=== PATIENT | female | born 1950 | race Caucasian/White ===

== ENCOUNTER 2018-02-22 16:47 | Outpatient (REF) | payer MEDICARE, MEDICAID, SELFPAY ==
[2018-02-22 21:03] LABS: HCT 36.5 % (36.0-46.0); HGB 11.4 g/dL (12.0-15.5); Mean Corp. HGB Concentration 31.2 g/dL (32.0-36.0); Mean Corpuscular Hemoglobin 30.5 pg (27.0-33.0); Mean Corpuscular Volume 97.6 fL (80-95); Mean Platelet Volume 12.6 fL (8.0-11.0); Platelet Count 164 x1000/uL (130-400); RBC 3.74 m/cumm (4.00-5.20); RBC Distribution Width 13.7 % (11.7-14.6); White Blood Cell Count 8.01 k/cumm (4.4-10.8)
[2018-02-22 21:53] LABS: Anion Gap 9.9 mmol/L (3-11); BUN 56 mg/dL (7-18); CO2 29.1 mmol/L (21.0-32.0); CREATININE 1.78 mg/dL (0.55-1.02); Calcium 8.9 mg/dL (8.5-10.1); Chloride 105 mmol/L (98-107); Estimated GFR 28.43 (mL/min/1.73m2); Glucose 95 mg/dL (70-100); Potassium 4.9 mmol/L (3.5-5.1); Sodium 144 mmol/L (136-145)
[2018-02-22 22:19] LABS: Iron 40 ug/dL (50-175); Total Iron Binding Capacity 363 ug/dL (250-450); Transferrin Sat 11 % (15-50)
[2018-02-22 22:37] LABS: Ferritin 51 ng/mL (8-388)
== END 2018-02-22 17:07 ==
LOC: NCHCN 16:47
PROVIDERS: PCP Family Medicine; Visit Provider Family Medicine
DX: E11.40 Type 2 diabetes mellitus with diabetic neuropathy, unspecified (principal); D50.9 Iron deficiency anemia, unspecified; N18.3 Chronic kidney disease, stage 3 (moderate)
CPT/HCPCS: 80048; 85027; 82728; 83540; 83550

== ENCOUNTER 2018-06-21 11:09 | Outpatient (REF) | payer MEDICARE, MEDICAID, SELFPAY ==
[2018-06-21 21:19] LABS: HCT 35.7 % (36.0-46.0); HGB 11.1 g/dL (12.0-15.5); Mean Corp. HGB Concentration 31.1 g/dL (32.0-36.0); Mean Corpuscular Hemoglobin 30.3 pg (27.0-33.0); Mean Corpuscular Volume 97.5 fL (80-95); Mean Platelet Volume 12.2 fL (8.0-11.0); Platelet Count 168 x1000/uL (130-400); RBC 3.66 m/cumm (4.00-5.20); RBC Distribution Width 13.3 % (11.7-14.6); White Blood Cell Count 8.02 k/cumm (4.4-10.8)
[2018-06-21 21:43] LABS: Hemoglobin A1C 5.5 % (4.5-6.2)
[2018-06-21 21:47] LABS: Iron 69 ug/dL (50-175)
[2018-06-21 21:55] LABS: AST 14 U/L (15-37); Albumin 3.6 g/dL (3.4-5.0); Alkaline Phosphatase 84 U/L (46-116); Anion Gap 8.9 mmol/L (3-11); BUN 51 mg/dL (7-18); Bilirubin, Total 0.4 mg/dL (0.2-1.0); CO2 31.1 mmol/L (21.0-32.0); CREATININE 1.81 mg/dL (0.55-1.02); Calcium 9.1 mg/dL (8.5-10.1); Chloride 102 mmol/L (98-107); Cholesterol 177 mg/dL (50-200); Ferritin 52 ng/mL (8-388); Glucose 89 mg/dL (70-100); HDL Cholesterol 37 mg/dL (40-60); LDL CHOLESTEROL 112 mg/dL (<100); Potassium 4.1 mmol/L (3.5-5.1); Sodium 142 mmol/L (136-145); Total Protein 6.9 g/dL (6.4-8.2); Triglyceride 179 mg/dL (30-150)
[2018-06-21 22:07] LABS: ALT 16 U/L (12-78)
== END 2018-06-21 11:29 ==
LOC: NCHCN 11:09
PROVIDERS: PCP Family Medicine; Visit Provider Family Medicine
DX: E11.9 Type 2 diabetes mellitus without complications (principal)
CPT/HCPCS: 80053; 80061; 83721; 85027; 82728; 83036; 83540

== ENCOUNTER 2018-10-31 15:37 | Outpatient (REF) | payer MEDICARE, MEDICAID, SELFPAY ==
[2018-11-01 10:28] LABS: HCT 35.6 % (36.0-46.0); HGB 11.5 g/dL (12.0-15.5); Mean Corp. HGB Concentration 32.3 g/dL (32.0-36.0); Mean Corpuscular Hemoglobin 30.7 pg (27.0-33.0); Mean Corpuscular Volume 94.9 fL (80-95); Mean Platelet Volume 12.2 fL (8.0-11.0); Platelet Count 183 x1000/uL (130-400); RBC 3.75 m/cumm (4.00-5.20); RBC Distribution Width 13.5 % (11.7-14.6); White Blood Cell Count 8.36 k/cumm (4.4-10.8)
[2018-11-01 12:30] LABS: Anion Gap 12.2 mmol/L (3-11); BUN 72 mg/dL (7-18); CO2 27.8 mmol/L (21.0-32.0); CREATININE 1.79 mg/dL (0.55-1.02); Calcium 9.3 mg/dL (8.5-10.1); Chloride 103 mmol/L (98-107); Estimated GFR 28.16 (mL/min/1.73m2); Ferritin 48 ng/mL (8-388); Glucose 98 mg/dL (70-100); Potassium 4.8 mmol/L (3.5-5.1); Sodium 143 mmol/L (136-145); Vitamin B12 489 pg/mL (193-986)
[2018-11-01 12:38] LABS: Folate > 20.0 ng/mL (8.6-20.0)
== END 2018-10-31 15:57 ==
LOC: NCHCN 15:37
PROVIDERS: PCP Family Medicine; Visit Provider Family Medicine
DX: D50.9 Iron deficiency anemia, unspecified (principal); E11.9 Type 2 diabetes mellitus without complications; N18.3 Chronic kidney disease, stage 3 (moderate)
CPT/HCPCS: 80048; 85027; 82607; 82728; 82746

== ENCOUNTER 2019-08-27 08:43 | Outpatient (REF) | payer MEDICARE, MEDICAID, SELFPAY ==
[2019-08-27 21:40] LABS: HCT 36.3 % (36.0-46.0); HGB 11.8 g/dL (12.0-15.5); Mean Corp. HGB Concentration 32.5 g/dL (32.0-36.0); Mean Corpuscular Hemoglobin 30.6 pg (27.0-33.0); Mean Corpuscular Volume 94.3 fL (80-95); Mean Platelet Volume 11.8 fL (8.0-11.0); Platelet Count 190 x1000/uL (130-400); RBC 3.85 m/cumm (4.00-5.20); RBC Distribution Width 12.7 % (11.7-14.6); White Blood Cell Count 8.82 k/cumm (4.4-10.8)
[2019-08-27 21:49] LABS: Hemoglobin A1C 5.8 % (3.8-5.6)
[2019-08-27 22:03] LABS: ALT 18 U/L (14-59); AST 13 U/L (15-37); Albumin 3.9 g/dL (3.4-5.0); Alkaline Phosphatase 80 U/L (46-116); Anion Gap 6.8 mmol/L (3-11); Bilirubin, Total 0.5 mg/dL (0.2-1.0); CO2 32.2 mmol/L (21.0-32.0); CREATININE 1.89 mg/dL (0.55-1.02); Calcium 9.3 mg/dL (8.5-10.1); Chloride 99 mmol/L (98-107); Estimated GFR 26.37 (mL/min/1.73m2); Ferritin 54 ng/mL (8-252); Glucose 108 mg/dL (74-106); Potassium 4.1 mmol/L (3.5-5.1); Sodium 138 mmol/L (136-145); Total Protein 7.2 g/dL (6.4-8.2)
[2019-08-27 22:10] LABS: BUN 62 mg/dL (7-18)
== END 2019-08-27 09:03 ==
LOC: NCHCN 08:43
PROVIDERS: PCP Family Medicine; Visit Provider Family Medicine
DX: E11.9 Type 2 diabetes mellitus without complications (principal); D50.9 Iron deficiency anemia, unspecified
CPT/HCPCS: 80053; 85027; 82728; 83036

== ENCOUNTER 2019-11-27 08:50 | Outpatient (REF) | payer MEDICARE, MEDICAID, SELFPAY ==
[2019-11-27 21:18] LABS: Anion Gap 10.7 mmol/L (3-11); BUN 76 mg/dL (7-18); CO2 29.3 mmol/L (21.0-32.0); CREATININE 1.88 mg/dL (0.55-1.02); Calcium 9.8 mg/dL (8.5-10.1); Chloride 102 mmol/L (98-107); Estimated GFR 26.53 (mL/min/1.73m2); Glucose 109 mg/dL (74-106); Potassium 4.1 mmol/L (3.5-5.1); Sodium 142 mmol/L (136-145)
[2019-11-27 21:28] LABS: Vitamin D 25 Total 66.2 ng/ml (30-100)
[2019-11-27 21:29] LABS: Hemoglobin A1C 5.3 % (3.8-5.6)
[2019-11-27 21:48] LABS: PHOSPHORUS 4.4 mg/dL (2.6-4.7)
== END 2019-11-27 09:10 ==
LOC: NCHCN 08:50
PROVIDERS: PCP Family Medicine; Visit Provider Family Medicine
DX: E11.9 Type 2 diabetes mellitus without complications (principal); N18.4 Chronic kidney disease, stage 4 (severe); E55.9 Vitamin D deficiency, unspecified
CPT/HCPCS: 80048; 82306; 83036; 84100

== ENCOUNTER 2019-12-31 09:28 | Outpatient (REF) | payer MEDICARE, MEDICAID, SELFPAY ==
[2019-12-31 19:33] LABS: Anion Gap 9.4 mmol/L (3-11); BUN 64 mg/dL (7-18); CO2 31.6 mmol/L (21.0-32.0); Calcium 9.2 mg/dL (8.5-10.1); Chloride 102 mmol/L (98-107); Glucose 112 mg/dL (74-106); Sodium 143 mmol/L (136-145)
== END 2019-12-31 09:48 ==
LOC: NCHCN 09:28
PROVIDERS: PCP Family Medicine; Visit Provider Family Medicine
DX: E11.9 Type 2 diabetes mellitus without complications (principal); I10 Essential (primary) hypertension
CPT/HCPCS: 80048

== ENCOUNTER 2020-03-11 11:57 | Outpatient (REF) | payer MEDICARE, MEDICAID, SELFPAY ==
[2020-03-11 21:01] LABS: HCT 37.3 % (36.0-46.0); HGB 11.9 g/dL (11.2-15.7); MCH 30.2 pg (27.0-33.0); MCHC 31.9 % (32.0-36.0); MCV 94.7 fL (80-95); MPV 11.7 fL (8.0-11.0); Platelet Count 198 10^3/uL (130-400); RBC 3.94 10^6/uL (3.93-5.22); RDW-SD 44.6 fL; WBC 10.25 10^3/uL (4.4-10.8)
[2020-03-11 21:49] LABS: Anion Gap 9.3 mmol/L (3-11); BUN 65 mg/dL (7-18); CO2 31.7 mmol/L (21.0-32.0); CREATININE 1.89 mg/dL (0.55-1.02); Calcium 9.4 mg/dL (8.5-10.1); Chloride 100 mmol/L (98-107); Estimated GFR 26.37 (mL/min/1.73m2); Glucose 113 mg/dL (74-106); Potassium 3.6 mmol/L (3.5-5.1); Sodium 141 mmol/L (136-145)
== END 2020-03-11 12:17 ==
LOC: NCHCN 11:57
PROVIDERS: PCP Family Medicine; Visit Provider Family Medicine
DX: N18.4 Chronic kidney disease, stage 4 (severe) (principal); D50.9 Iron deficiency anemia, unspecified
CPT/HCPCS: 80048; 85027

== ENCOUNTER 2020-05-24 19:05 | Outpatient (REF) | payer MEDICARE, MEDICAID, SELFPAY ==
[2020-05-24 12:39] LABS: Abs Immature Grans 0.02 10^3/uL (0.0-0.06); Absolute Basophil Count 0.07 10^3/uL (0.0-0.2); Absolute Eosinophil Count 0.35 10^3/uL (0.0-0.7); Absolute Lymphocyte Count 1.03 10^3/uL (1.2-3.4); Absolute Monocyte Count 0.55 10^3/uL (0.1-0.8); Absolute Neutrophil Count 5.06 10^3/uL (1.2-6.7); Eosinophils % 4.9; HCT 24.5 % (36.0-46.0); Immature Grans % 0.3; Lymphocytes % 14.5; MCH 30.5 pg (27.0-33.0); MCHC 32.7 % (32.0-36.0); MCV 93.5 fL (80-95); MPV 11.6 fL (8.0-11.0); Monocytes % 7.8; Neutrophils % 71.5; Nucleated RBC 0 %; Platelet Count 152 10^3/uL (130-400); RBC 2.62 10^6/uL (3.93-5.22); RDW 14.5 % (11.7-14.6); RDW-SD 49.8 fL; WBC 7.08 10^3/uL (4.4-10.8)
[2020-05-24 12:57] LABS: Anion Gap 12.3 mmol/L (3-11); BUN 57 mg/dL (7-18); C-Reactive Protein 0.77 mg/dL (0.0-0.3); CO2 22.7 mmol/L (21.0-32.0); CREATININE 2.37 mg/dL (0.55-1.02); Chloride 96 mmol/L (98-107); Estimated GFR 20.25 (mL/min/1.73m2); Glucose 110 mg/dL (74-106); Sodium 131 mmol/L (136-145)
[2020-05-24 13:03] LABS: Diff Comment RBC Morph Reviewed
[2020-05-24 13:04] LABS: Basophilic Stippling Present; Polychromasia Present
[2020-05-24 13:28] LABS: Vancomycin, Trough 22.7 ug/mL (10.0-20.0)
== END 2020-05-24 19:25 ==
LOC: LBN 19:05
PROVIDERS: PCP Family Medicine; Visit Provider Pediatrics
DX: M86.171 Other acute osteomyelitis, right ankle and foot (principal)
CPT/HCPCS: 80048; 80202; 85025; 86140

== ENCOUNTER 2020-05-28 13:10 | Outpatient (REF) | payer MEDICARE, MEDICAID, SELFPAY ==
[2020-05-28 15:19] LABS: CREATININE 2.27 mg/dL (0.55-1.02); Estimated GFR 21.28 (mL/min/1.73m2); Vancomycin, Trough 19.9 ug/mL (10.0-20.0)
== END 2020-05-28 13:30 ==
LOC: LBN 13:10
PROVIDERS: PCP Family Medicine; Visit Provider Pediatrics
DX: T25.321D Burn of third degree of right foot, subsequent encounter (principal); M86.171 Other acute osteomyelitis, right ankle and foot; Z79.2 Long term (current) use of antibiotics
CPT/HCPCS: 80202; 82565

== ENCOUNTER 2020-05-31 13:22 | Outpatient (REF) | payer MEDICARE, MEDICAID, SELFPAY ==
[2020-05-31 14:05] LABS: Abs Immature Grans 0.03 10^3/uL (0.0-0.06); Absolute Basophil Count 0.12 10^3/uL (0.0-0.2); Absolute Monocyte Count 0.74 10^3/uL (0.1-0.8); Absolute Neutrophil Count 5.51 10^3/uL (1.2-6.7); Basophils % 1.5; Eosinophils % 5.1; HCT 25.9 % (36.0-46.0); HGB 8.1 g/dL (11.2-15.7); Immature Grans % 0.4; Lymphocytes % 13.9; MCH 30.5 pg (27.0-33.0); MCHC 31.3 % (32.0-36.0); MCV 97.4 fL (80-95); MPV 10.9 fL (8.0-11.0); Monocytes % 9.4; Neutrophils % 69.7; Nucleated RBC 0 %; Platelet Count 226 10^3/uL (130-400); RBC 2.66 10^6/uL (3.93-5.22); RDW 14.4 % (11.7-14.6); RDW-SD 50.6 fL
[2020-05-31 14:20] LABS: BUN 43 mg/dL (7-18); CREATININE 1.85 mg/dL (0.55-1.02); Calcium 8.7 mg/dL (8.5-10.1); Chloride 106 mmol/L (98-107); Estimated GFR 26.95 (mL/min/1.73m2); Glucose 106 mg/dL (74-106); Potassium 4.2 mmol/L (3.5-5.1); Sodium 142 mmol/L (136-145)
== END 2020-05-31 13:42 ==
LOC: LBN 13:22
PROVIDERS: PCP Family Medicine; Visit Provider Pediatrics
DX: M86.171 Other acute osteomyelitis, right ankle and foot (principal); E11.42 Type 2 diabetes mellitus with diabetic polyneuropathy; E11.69 Type 2 diabetes mellitus with other specified complication
CPT/HCPCS: 80048; 80202; 85025; 86140

== ENCOUNTER 2020-06-07 14:24 | Outpatient (REF) | payer MEDICARE, MEDICAID, SELFPAY ==
[2020-06-07 13:44] LABS: Abs Immature Grans 0.02 10^3/uL (0.0-0.06); Absolute Eosinophil Count 0.44 10^3/uL (0.0-0.7); Absolute Monocyte Count 0.61 10^3/uL (0.1-0.8); Absolute Neutrophil Count 5.03 10^3/uL (1.2-6.7); Basophils % 1.4; Eosinophils % 6.2; HGB 7.7 g/dL (11.2-15.7); Immature Grans % 0.3; Lymphocytes % 12.7; MCHC 30.8 % (32.0-36.0); MCV 97.3 fL (80-95); MPV 10.7 fL (8.0-11.0); Monocytes % 8.6; Neutrophils % 70.8; Nucleated RBC 0 %; Platelet Count 211 10^3/uL (130-400); RBC 2.57 10^6/uL (3.93-5.22); RDW 14.5 % (11.7-14.6); RDW-SD 50.6 fL
[2020-06-07 13:58] LABS: Anion Gap 6.4 mmol/L (3-11); BUN 38 mg/dL (7-18); C-Reactive Protein 2.24 mg/dL (0.0-0.3); CO2 28.6 mmol/L (21.0-32.0); CREATININE 1.81 mg/dL (0.55-1.02); Calcium 8.4 mg/dL (8.5-10.1); Chloride 104 mmol/L (98-107); Estimated GFR 27.64 (mL/min/1.73m2); Glucose 111 mg/dL (74-106); Potassium 4.3 mmol/L (3.5-5.1); Sodium 139 mmol/L (136-145)
[2020-06-07 14:10] LABS: Diff Comment Diff Reviewed; Hypochromasia 1+; Polychromasia Present
== END 2020-06-07 14:44 ==
LOC: LBN 14:24
PROVIDERS: PCP Family Medicine; Visit Provider Pediatrics
DX: M86.171 Other acute osteomyelitis, right ankle and foot (principal); E11.42 Type 2 diabetes mellitus with diabetic polyneuropathy; L97.512 Non-pressure chronic ulcer of other part of right foot with fat layer exposed; Z79.2 Long term (current) use of antibiotics
CPT/HCPCS: 80048; 80202; 85025; 86140

== ENCOUNTER 2020-06-11 15:31 | Outpatient (REF) | payer MEDICARE, MEDICAID, SELFPAY ==
[2020-06-11 13:43] LABS: Vancomycin, Trough 12.3 ug/mL (10.0-20.0)
[2020-06-11 13:44] LABS: Hemoglobin A1C 5.1 % (<5.7)
[2020-06-11 14:09] LABS: COMMENT (LAB VIEW ONLY) 74.64 mg/dL; Microalb ug/mg Crea 20.9 ug/mg Cr
== END 2020-06-11 15:51 ==
LOC: NCHCN 15:31
PROVIDERS: PCP Family Medicine; Visit Provider Family Medicine
DX: E11.42 Type 2 diabetes mellitus with diabetic polyneuropathy (principal); M86.171 Other acute osteomyelitis, right ankle and foot; L97.512 Non-pressure chronic ulcer of other part of right foot with fat layer exposed; Z79.2 Long term (current) use of antibiotics
CPT/HCPCS: 80202; 82043; 82570; 83036

== ENCOUNTER 2020-06-14 16:26 | Outpatient (REF) | payer MEDICARE, MEDICAID, SELFPAY ==
[2020-06-14 13:42] LABS: Abs Immature Grans 0.03 10^3/uL (0.0-0.06); Absolute Basophil Count 0.11 10^3/uL (0.0-0.2); Absolute Eosinophil Count 0.56 10^3/uL (0.0-0.7); Absolute Lymphocyte Count 1.12 10^3/uL (1.2-3.4); Absolute Monocyte Count 0.73 10^3/uL (0.1-0.8); Absolute Neutrophil Count 5.63 10^3/uL (1.2-6.7); Basophils % 1.3; Eosinophils % 6.8; HCT 24.1 % (36.0-46.0); HGB 7.4 g/dL (11.2-15.7); Immature Grans % 0.4; Lymphocytes % 13.7; MCH 29.4 pg (27.0-33.0); MCHC 30.7 % (32.0-36.0); MCV 95.6 fL (80-95); MPV 11.1 fL (8.0-11.0); Monocytes % 8.9; Neutrophils % 68.9; Nucleated RBC 0 %; Platelet Count 213 10^3/uL (130-400); RBC 2.52 10^6/uL (3.93-5.22); RDW 14.4 % (11.7-14.6); RDW-SD 50.1 fL; WBC 8.18 10^3/uL (4.4-10.8)
[2020-06-14 14:13] LABS: Anion Gap 8.6 mmol/L (3-11); C-Reactive Protein 0.35 mg/dL (0.0-0.3); CO2 28.4 mmol/L (21.0-32.0); CREATININE 1.9 mg/dL (0.55-1.02); Chloride 103 mmol/L (98-107); Estimated GFR 26.13 (mL/min/1.73m2); Glucose 127 mg/dL (74-106); Potassium 3.6 mmol/L (3.5-5.1); Sodium 140 mmol/L (136-145); Vancomycin, Trough 14.6 ug/mL (10.0-20.0)
[2020-06-14 14:25] LABS: Basophilic Stippling Present; Diff Comment RBC Morph Reviewed; Hypochromasia 1+; Polychromasia Present
[2020-06-14 14:40] LABS: BUN 60 mg/dL (7-18)
== END 2020-06-14 16:46 ==
LOC: LBN 16:26
PROVIDERS: PCP Family Medicine; Visit Provider Pediatrics
DX: M86.171 Other acute osteomyelitis, right ankle and foot (principal); E11.42 Type 2 diabetes mellitus with diabetic polyneuropathy; L97.512 Non-pressure chronic ulcer of other part of right foot with fat layer exposed; Z79.2 Long term (current) use of antibiotics
CPT/HCPCS: 80048; 80202; 85025; 86140

== ENCOUNTER 2020-06-21 16:11 | Outpatient (REF) | payer MEDICARE, MEDICAID, SELFPAY ==
[2020-06-21 17:24] LABS: Abs Immature Grans 0.03 10^3/uL (0.0-0.06); Absolute Basophil Count 0.09 10^3/uL (0.0-0.2); Absolute Eosinophil Count 0.48 10^3/uL (0.0-0.7); Absolute Lymphocyte Count 1.04 10^3/uL (1.2-3.4); Absolute Monocyte Count 0.59 10^3/uL (0.1-0.8); Absolute Neutrophil Count 5.59 10^3/uL (1.2-6.7); Basophils % 1.2; Eosinophils % 6.1; HCT 27.9 % (36.0-46.0); HGB 8.3 g/dL (11.2-15.7); Immature Grans % 0.4; Lymphocytes % 13.3; MCH 29.6 pg (27.0-33.0); MCHC 29.7 % (32.0-36.0); MCV 99.6 fL (80-95); MPV 11.4 fL (8.0-11.0); Monocytes % 7.5; Neutrophils % 71.5; Nucleated RBC 0 %; Platelet Count 212 10^3/uL (130-400); RDW 15.5 % (11.7-14.6); RDW-SD 55.8 fL; WBC 7.82 10^3/uL (4.4-10.8)
[2020-06-21 17:52] LABS: Anion Gap 9.7 mmol/L (3-11); BUN 55 mg/dL (7-18); CO2 28.3 mmol/L (21.0-32.0); CREATININE 2.1 mg/dL (0.55-1.02); Calcium 8.8 mg/dL (8.5-10.1); Chloride 103 mmol/L (98-107); Estimated GFR 23.28 (mL/min/1.73m2); Glucose 127 mg/dL (74-106); Potassium 4.7 mmol/L (3.5-5.1); Sodium 141 mmol/L (136-145)
[2020-06-21 18:02] LABS: C-Reactive Protein 0.13 mg/dL (0.0-0.3)
== END 2020-06-21 16:12 | disposition home or self-care (01) ==
LOC: LBN 16:11
PROVIDERS: PCP Family Medicine; Visit Provider Pediatrics
DX: M86.171 Other acute osteomyelitis, right ankle and foot (principal); E11.42 Type 2 diabetes mellitus with diabetic polyneuropathy; E11.69 Type 2 diabetes mellitus with other specified complication
CPT/HCPCS: 80048; 80202; 85025; 86140

== ENCOUNTER 2020-06-28 13:33 | Outpatient (REF) | payer MEDICARE, MEDICAID, SELFPAY ==
[2020-06-28 14:18] LABS: Abs Immature Grans 0.03 10^3/uL (0.0-0.06); Absolute Basophil Count 0.06 10^3/uL (0.0-0.2); Absolute Eosinophil Count 0.51 10^3/uL (0.0-0.7); Absolute Lymphocyte Count 0.94 10^3/uL (1.2-3.4); Absolute Monocyte Count 0.53 10^3/uL (0.1-0.8); Basophils % 0.8; Eosinophils % 6.7; HCT 28.4 % (36.0-46.0); HGB 8.4 g/dL (11.2-15.7); Immature Grans % 0.4; Lymphocytes % 12.4; MCH 29.4 pg (27.0-33.0); MCHC 29.6 % (32.0-36.0); MCV 99.3 fL (80-95); MPV 11.6 fL (8.0-11.0); Neutrophils % 72.7; Nucleated RBC 0 %; Platelet Count 157 10^3/uL (130-400); RBC 2.86 10^6/uL (3.93-5.22); RDW 15.3 % (11.7-14.6); WBC 7.57 10^3/uL (4.4-10.8)
[2020-06-28 14:29] LABS: BUN 58 mg/dL (7-18); C-Reactive Protein 0.12 mg/dL (0.0-0.3); CREATININE 1.8 mg/dL (0.55-1.02); Calcium 8.7 mg/dL (8.5-10.1); Chloride 104 mmol/L (98-107); Estimated GFR 27.82 (mL/min/1.73m2); Glucose 122 mg/dL (74-106); Sodium 139 mmol/L (136-145); Vancomycin, Trough 15.2 ug/mL (10.0-20.0)
== END 2020-06-28 13:34 | disposition home or self-care (01) ==
LOC: LBN 13:33
PROVIDERS: PCP Family Medicine; Visit Provider Pediatrics
DX: M86.171 Other acute osteomyelitis, right ankle and foot (principal); E11.42 Type 2 diabetes mellitus with diabetic polyneuropathy; L97.512 Non-pressure chronic ulcer of other part of right foot with fat layer exposed; Z51.81 Encounter for therapeutic drug level monitoring
CPT/HCPCS: 80048; 80202; 85025; 86140

== ENCOUNTER 2020-07-05 13:14 | Outpatient (REF) | payer MEDICARE, MEDICAID, SELFPAY ==
[2020-07-05 15:19] LABS: C-Reactive Protein 0.15 mg/dL (0.0-0.3)
[2020-07-05 15:27] LABS: Anion Gap 11.7 mmol/L (3-11); BUN 79 mg/dL (7-18); CO2 26.3 mmol/L (21.0-32.0); Calcium 8.8 mg/dL (8.5-10.1); Chloride 102 mmol/L (98-107); Estimated GFR 24.63 (mL/min/1.73m2); Glucose 143 mg/dL (74-106); Potassium 4.3 mmol/L (3.5-5.1); Sodium 140 mmol/L (136-145); Vancomycin, Trough 17.3 ug/mL (10.0-20.0)
== END 2020-07-05 13:15 | disposition home or self-care (01) ==
LOC: LBN 13:14
PROVIDERS: PCP Family Medicine; Visit Provider Pediatrics
DX: L97.912 Non-pressure chronic ulcer of unspecified part of right lower leg with fat layer exposed (principal); M86.171 Other acute osteomyelitis, right ankle and foot; Z79.2 Long term (current) use of antibiotics
CPT/HCPCS: 80048; 80202; 86140

== ENCOUNTER 2020-07-12 22:55 | Outpatient (REF) | payer MEDICARE, MEDICAID, SELFPAY ==
[2020-07-12 22:11] LABS: Abs Immature Grans 0.01 10^3/uL (0.0-0.06); Absolute Basophil Count 0.05 10^3/uL (0.0-0.2); Absolute Eosinophil Count 0.34 10^3/uL (0.0-0.7); Absolute Neutrophil Count 4.93 10^3/uL (1.2-6.7); Basophils % 0.7; HCT 27.9 % (36.0-46.0); HGB 8.8 g/dL (11.2-15.7); Immature Grans % 0.1; Lymphocytes % 14.6; MCH 30.3 pg (27.0-33.0); MCHC 31.5 % (32.0-36.0); MCV 96.2 fL (80-95); MPV 11.5 fL (8.0-11.0); Monocytes % 7.3; Neutrophils % 72.3; Nucleated RBC 0 %; Platelet Count 198 10^3/uL (130-400); RDW 15.2 % (11.7-14.6); RDW-SD 53.6 fL; WBC 6.83 10^3/uL (4.4-10.8)
[2020-07-12 22:19] LABS: Anion Gap 9.4 mmol/L (3-11); CO2 28.6 mmol/L (21.0-32.0); CREATININE 2.2 mg/dL (0.55-1.02); Calcium 8.6 mg/dL (8.5-10.1); Chloride 100 mmol/L (98-107); Estimated GFR 22.07 (mL/min/1.73m2); Glucose 136 mg/dL (74-106); Potassium 3.4 mmol/L (3.5-5.1); Sodium 138 mmol/L (136-145)
[2020-07-12 23:11] LABS: BUN 93 mg/dL (7-18)
== END 2020-07-12 22:56 | disposition home or self-care (01) ==
LOC: LBN 22:55
PROVIDERS: PCP Family Medicine; Visit Provider Pediatrics
DX: M86.171 Other acute osteomyelitis, right ankle and foot (principal); E11.42 Type 2 diabetes mellitus with diabetic polyneuropathy; L97.512 Non-pressure chronic ulcer of other part of right foot with fat layer exposed
CPT/HCPCS: 80048; 85025; 86140

== ENCOUNTER 2020-07-20 15:48 | Outpatient (REF) | payer MEDICARE, MEDICAID, SELFPAY ==
[2020-07-20 16:08] LABS: Anion Gap 12.5 mmol/L (3-11); BUN 77 mg/dL (7-18); CO2 26.5 mmol/L (21.0-32.0); CREATININE 1.9 mg/dL (0.55-1.02); Calcium 9.1 mg/dL (8.5-10.1); Chloride 95 mmol/L (98-107); Estimated GFR 26.13 (mL/min/1.73m2); Glucose 100 mg/dL (74-106); Potassium 3.7 mmol/L (3.5-5.1); Sodium 134 mmol/L (136-145)
== END 2020-07-20 15:49 | disposition home or self-care (01) ==
LOC: NCHCN 15:48
PROVIDERS: PCP Family Medicine; Visit Provider Family Medicine
DX: E11.42 Type 2 diabetes mellitus with diabetic polyneuropathy (principal); L97.512 Non-pressure chronic ulcer of other part of right foot with fat layer exposed; M86.171 Other acute osteomyelitis, right ankle and foot
CPT/HCPCS: 80048

== ENCOUNTER 2020-09-16 09:31 | Outpatient (REF) | payer OTHER, MEDICAID, SELFPAY ==
[2020-09-16 12:53] LABS: HCT 28.1 % (36.0-46.0); MCH 27.2 pg (27.0-33.0); MCHC 28.5 % (32.0-36.0); MCV 95.6 fL (80-95); MPV 11.7 fL (8.0-11.0); Platelet Count 192 10^3/uL (130-400); RBC 2.94 10^6/uL (3.93-5.22); RDW 16.5 % (11.7-14.6); RDW-SD 57.8 fL; WBC 8.43 10^3/uL (4.4-10.8)
[2020-09-16 13:24] LABS: ALT 22 U/L (14-59); AST 16 U/L (15-37); Albumin 3.3 g/dL (3.4-5.0); Alkaline Phosphatase 93 U/L (46-116); Anion Gap 7.7 mmol/L (3-11); BUN 47 mg/dL (7-18); Bilirubin, Total 0.3 mg/dL (0.2-1.0); CO2 31.3 mmol/L (21.0-32.0); CREATININE 1.7 mg/dL (0.55-1.02); Calcium 8.7 mg/dL (8.5-10.1); Calculated LDL 48 mg/dL (<100); Chloride 106 mmol/L (98-107); Cholesterol 112 mg/dL (<200); Estimated GFR 29.71 (mL/min/1.73m2); Glucose 122 mg/dL (74-106); HDL Cholesterol 40 mg/dL (40-60); Potassium 4.6 mmol/L (3.5-5.1); Sodium 145 mmol/L (136-145); Total Protein 6.5 g/dL (6.4-8.2); Triglyceride 121 mg/dL (<150)
== END 2020-09-16 09:32 | disposition home or self-care (01) ==
LOC: NCHCN 09:31
PROVIDERS: PCP Family Medicine; Visit Provider Family Medicine
DX: E11.9 Type 2 diabetes mellitus without complications (principal); D50.9 Iron deficiency anemia, unspecified
CPT/HCPCS: 80053; 80061; 85027

== ENCOUNTER 2020-10-22 16:26 | Outpatient (REF) | payer OTHER, MEDICAID, SELFPAY ==
[2020-10-22 13:42] LABS: HCT 34.5 % (36.0-46.0); HGB 10.1 g/dL (11.2-15.7); MCH 28.7 pg (27.0-33.0); MCHC 29.3 % (32.0-36.0); MPV 11.6 fL (8.0-11.0); Platelet Count 187 10^3/uL (130-400); RBC 3.52 10^6/uL (3.93-5.22); RDW 16.9 % (11.7-14.6); RDW-SD 60.5 fL; WBC 7.33 10^3/uL (4.4-10.8)
== END 2020-10-22 16:27 | disposition home or self-care (01) ==
LOC: NCHCN 16:26
PROVIDERS: PCP Family Medicine; Visit Provider Family Medicine
DX: D50.9 Iron deficiency anemia, unspecified (principal)
CPT/HCPCS: 85027

== ENCOUNTER 2021-04-01 14:19 | Outpatient (REF) | payer OTHER, MEDICAID, SELFPAY ==
[2021-04-01 15:53] LABS: BUN 77 mg/dL (7-18); Calcium 8.9 mg/dL (8.5-10.1); Chloride 101 mmol/L (98-107); Estimated GFR 24.63 (mL/min/1.73m2); Glucose 154 mg/dL (74-106); Potassium 3.6 mmol/L (3.5-5.1); Sodium 141 mmol/L (136-145)
== END 2021-04-01 14:20 | disposition home or self-care (01) ==
LOC: NCHCN 14:19
PROVIDERS: PCP Family Medicine; Visit Provider Family Medicine
DX: E11.9 Type 2 diabetes mellitus without complications (principal); D50.9 Iron deficiency anemia, unspecified; N18.4 Chronic kidney disease, stage 4 (severe)
CPT/HCPCS: 80048; 83036

== ENCOUNTER 2021-06-30 19:38 | Outpatient (REF) | payer OTHER, MEDICAID, SELFPAY ==
[2021-06-30 16:25] LABS: HCT 34.6 % (36.0-46.0); HGB 10.6 g/dL (11.2-15.7); MCHC 30.6 % (32.0-36.0); MCV 94.5 fL (80-95); MPV 11.9 fL (8.0-11.0); Platelet Count 175 10^3/uL (130-400); RBC 3.66 10^6/uL (3.93-5.22); RDW 14.2 % (11.7-14.6); RDW-SD 49.1 fL; WBC 8.12 10^3/uL (4.4-10.8)
[2021-06-30 18:08] LABS: ALT 28 U/L (14-59); AST 17 U/L (15-37); Albumin 3.6 g/dL (3.4-5.0); Alkaline Phosphatase 89 U/L (46-116); Anion Gap 9.7 mmol/L (3-11); BUN 49 mg/dL (7-18); Bilirubin, Total 0.4 mg/dL (0.2-1.0); CO2 29.3 mmol/L (21.0-32.0); CREATININE 2.1 mg/dL (0.55-1.02); Calcium 8.6 mg/dL (8.5-10.1); Calculated LDL 53 mg/dL (<100); Chloride 104 mmol/L (98-107); Cholesterol 130 mg/dL (<200); Estimated GFR 23.22 (mL/min/1.73m2); Glucose 152 mg/dL (74-106); HDL Cholesterol 40 mg/dL (40-60); Potassium 4.2 mmol/L (3.5-5.1); Sodium 143 mmol/L (136-145); Triglyceride 189 mg/dL (<150)
[2021-06-30 18:47] LABS: Vitamin D 25 Total 47.1 ng/mL (30-100)
== END 2021-06-30 19:39 | disposition home or self-care (01) ==
LOC: NCHCN 19:38
PROVIDERS: PCP Family Medicine; Visit Provider Family Medicine
DX: E78.5 Hyperlipidemia, unspecified (principal); E55.9 Vitamin D deficiency, unspecified; E11.9 Type 2 diabetes mellitus without complications; I10 Essential (primary) hypertension
CPT/HCPCS: 80053; 80061; 82306; 85027

== ENCOUNTER 2021-09-30 19:30 | Outpatient (REF) | payer OTHER, MEDICAID, SELFPAY ==
[2021-09-30 15:29] LABS: HCT 29.4 % (36.0-46.0); MCH 30.1 pg (27.0-33.0); MCHC 30.6 % (32.0-36.0); MCV 98 fL (80-95); MPV 11.8 fL (8.0-11.0); Platelet Count 167 10^3/uL (130-400); RBC 2.99 10^6/uL (3.93-5.22); RDW 14.6 % (11.7-14.6); RDW-SD 52.3 fL; WBC 7.72 10^3/uL (4.4-10.8)
[2021-09-30 17:05] LABS: Anion Gap 11.4 mmol/L (3-11); BUN 70 mg/dL (7-18); CO2 27.6 mmol/L (21.0-32.0); CREATININE 2.1 mg/dL (0.55-1.02); Calcium 8.5 mg/dL (8.5-10.1); Chloride 103 mmol/L (98-107); Estimated GFR 23.22 (mL/min/1.73m2); Glucose 175 mg/dL (74-106); Potassium 4.1 mmol/L (3.5-5.1); Sodium 142 mmol/L (136-145)
[2021-09-30 17:20] LABS: PHOSPHORUS 3.5 mg/dL (2.6-4.7)
[2021-10-03 10:14] LABS: Parathyroid Hormone,Intact 211 pg/mL (19-88)
== END 2021-09-30 19:31 | disposition home or self-care (01) ==
LOC: NCHCN 19:30
PROVIDERS: PCP Family Medicine; Visit Provider Family Medicine
DX: N18.4 Chronic kidney disease, stage 4 (severe) (principal)
CPT/HCPCS: 80048; 85027; 83970; 84100

== ENCOUNTER 2022-04-07 15:51 | Outpatient (REF) | payer OTHER, MEDICAID, SELFPAY ==
[2022-04-07 21:19] LABS: HCT 33.3 % (36.0-46.0); HGB 10.4 g/dL (11.2-15.7)
[2022-04-07 21:22] LABS: Anion Gap 8.7 mmol/L (3-11); BUN 65 mg/dL (7-18); CO2 29.3 mmol/L (21.0-32.0); CREATININE 2.2 mg/dL (0.55-1.02); Calcium 8.9 mg/dL (8.5-10.1); Chloride 100 mmol/L (98-107); Estimated GFR 23.38 (mL/min/1.73m2); Glucose 187 mg/dL (74-106); Potassium 3.8 mmol/L (3.5-5.1); Sodium 138 mmol/L (136-145)
[2022-04-07 22:06] LABS: COMMENT (LAB VIEW ONLY) 70.87 mg/dL
[2022-04-07 22:08] LABS: Microalb ug/mg Crea 263.6 ug/mg Cr
== END 2022-04-07 15:52 | disposition home or self-care (01) ==
LOC: NCHCN 15:51
PROVIDERS: PCP Family Medicine; Visit Provider Family Medicine
DX: E11.9 Type 2 diabetes mellitus without complications (principal); N18.4 Chronic kidney disease, stage 4 (severe); D50.9 Iron deficiency anemia, unspecified
CPT/HCPCS: 80048; 82043; 82570; 83036; 85014; 85018

== ENCOUNTER 2022-10-02 13:38 | Outpatient (REF) | payer OTHER, MEDICAID, SELFPAY ==
[2022-10-02 15:28] LABS: HCT 31.8 % (36.0-46.0); HGB 9.8 g/dL (11.2-15.7); MCH 30.7 pg (27.0-33.0); MCHC 30.8 % (32.0-36.0); MCV 100 fL (80-95); MPV 11.6 fL (8.0-11.0); Platelet Count 174 10^3/uL (130-400); RBC 3.19 10^6/uL (3.93-5.22); RDW 13.6 % (11.7-14.6); RDW-SD 49.4 fL; WBC 6.83 10^3/uL (4.4-10.8)
[2022-10-02 15:43] LABS: ALT 21 U/L (14-59); AST 20 U/L (15-37); Albumin 3.5 g/dL (3.4-5.0); Alkaline Phosphatase 84 U/L (46-116); Anion Gap 7.1 mmol/L (3-11); BUN 50 mg/dL (7-18); Bilirubin, Total 0.4 mg/dL (0.2-1.0); CO2 28.9 mmol/L (21.0-32.0); CREATININE 1.8 mg/dL (0.55-1.02); Calcium 9.2 mg/dL (8.5-10.1); Calculated LDL 33 mg/dL (<100); Chloride 99 mmol/L (98-107); Cholesterol 118 mg/dL (<200); Estimated GFR 29.57 (mL/min/1.73m2); Glucose 270 mg/dL (74-106); HDL Cholesterol 35 mg/dL (40-60); PHOSPHORUS 3.8 mg/dL (2.6-4.7); Potassium 4.7 mmol/L (3.5-5.1); Sodium 135 mmol/L (136-145); Triglyceride 252 mg/dL (<150)
[2022-10-02 16:20] LABS: Vitamin D 25 Total 53.4 ng/mL (30-100)
[2022-10-02 22:56] LABS: Parathyroid Hormone,Intact 112 pg/mL (19-88)
[2022-10-03 11:45] LABS: Hemoglobin A1C 8.7 % (<5.7)
== END 2022-10-02 13:39 | disposition home or self-care (01) ==
LOC: NCHCN 13:38
PROVIDERS: PCP Family Medicine; Visit Provider Family Medicine
DX: E11.9 Type 2 diabetes mellitus without complications (principal); E55.9 Vitamin D deficiency, unspecified; I10 Essential (primary) hypertension; N18.4 Chronic kidney disease, stage 4 (severe); E78.5 Hyperlipidemia, unspecified
CPT/HCPCS: 80053; 80061; 82306; 85027; 83036; 83970; 84100

== ENCOUNTER 2023-01-16 17:22 | Outpatient (REF) | payer OTHER, MEDICAID, SELFPAY ==
--- OUTSIDE RECORDS SUMMARY | 2023-01-16 17:26 | XMS_ITS | CCD ---
Author Name Unknown Address [address] [place] [address] [phone] Organization Unknown Address [address] [place] [address] [phone] Care Team Providers Care Marketing Regional Consultant Name Role Phone WILIAN, MCKADIPIKA Hernandez Attending Physician [phone] Vital Signs Unknown or Not Available. Allergies Allergy Code Allergy Type Reaction Status No Known Allergies 0 No known allergies Active Procedures Unknown or Not Available. History of Immunizations Immunization Code Date pneumococcal polysaccharide PPV23 33 12/02/2013 Problems Problem Code Start Date Resolved Date Status Anemia [id number] Active Results Unknown or Not Available. Active Medications Medication Code Dose Units Frequency Route Modificatio n Start Date/Time MiraLAX 17GM/1Dose Oral Powder for Solution 453842 1 UNIT NEEDED DAILY ORAL 11/26/2015 13:06 Prescription Detail TAKE 1 UNIT ORAL NEEDED DAILY FOR CON STIPATION Colace 100MG Oral Capsule, Liquid Filled 7008622 1 TABLET NEEDED TWICE DAILY ORAL 11/26/2015 13:05 Prescription Detail TAKE 1 TABLET ORAL NEEDED TWICE DAILY FOR CONSTIPATION Torsemide 20MG Oral Tablet [id number] 1 TABLET DAILY ORAL 11/26/19 16 13:05 Prescription Detail TAKE 1 TABLET ORAL DAILY K-DUR 20MEQ ORAL TABLET, EXTENDED R 0 1 TABLET TWICE A DAY ORAL 016 13:04 Prescription Detail TAKE 1 TABLET ORAL TWICE A DAY Mapap 325MG Oral Tablet [id number] 975 MILLIGRAMS PRN Q6H BY MOUTH 11/26/2015 13:04 Prescription Detail TAKE 975 MILLIGRAMS BY MOUTH PRN Q6H metFORMIN HCl 1000MG Oral Tablet, Extended Release [id number] 1 TABLET DAILY ORAL 11/26/2015 13:04 Prescription Detail TAKE 1 TABLET ORAL DAILY ONDANSETRON HCI 8MG ORAL TABLET 0 8 MILLIGRAMS NEEDED ORAL 6 13:04 Prescription Detail TAKE 8 MILLIGRAMS ORAL NEEDED ALPRAZolam 0.5MG Oral Tablet 866157 0.5 MILLIGRAMS NEEDED DAILY ORAL 07/28/2015 15:08 Prescription Detail TAKE 0.5 MILLIGRAMS ORAL NEEDED DAILY Medications Administered During Visit Unknown or Not Available. Encounters Encounter Diagnosis Diagnosis Code Start Date Encounter for other specified aftercare [id number] 09/02/2021 Social History Smoking Status Code Start Date End Date Current every day smoker [id number] Patient Decision Aids Unknown or Not Available. Discharge Instructions You were admitted to [facility] on 09/02/2021 09:46 with a principal diagnosis of Encounter for other specified aftercare You were discharged from [facility] on 09/02/2021 12:00 Should you have any questions prior to discharge, please contact a member of your healthcare team. If you have left the hospital and have any questions, please contact your primary care physician. Chief Complaint and Reason For Visit Unknown or Not Available. Function Status Unknown or Not Available. Plan of Care Unknown or Not Available. Referral/Transition of Care Unknown or Not Available.
--- OUTSIDE RECORDS SUMMARY | 2023-01-16 17:26 | XMS_ITS | CCD ---
Author Name Unknown Address [address] [place] [address] [phone] Organization Unknown Address [address] [place] [address] [phone] Care Team Providers Care Tube Repairer Name Role Phone WILIAN, MCKADIPIKA Hernandez Attending Physician [phone] Vital Signs Unknown or Not Available. Allergies Allergy Code Allergy Type Reaction Status No Known Allergies 0 No known allergies Active Procedures Unknown or Not Available. History of Immunizations Immunization Code Date pneumococcal polysaccharide PPV23 33 12/02/2013 Problems Problem Code Start Date Resolved Date Status Anemia [id number] Active Results Unknown or Not Available. Active Medications Medication Code Dose Units Frequency Route Modificatio n Start Date/Time MiraLAX 17GM/1Dose Oral Powder for Solution 992923 1 UNIT NEEDED DAILY ORAL 11/26/2015 13:06 Prescription Detail TAKE 1 UNIT ORAL NEEDED DAILY FOR CON STIPATION Colace 100MG Oral Capsule, Liquid Filled 2683184 1 TABLET NEEDED TWICE DAILY ORAL 11/26/2015 13:05 Prescription Detail TAKE 1 TABLET ORAL NEEDED TWICE DAILY FOR CONSTIPATION Torsemide 20MG Oral Tablet [id number] 1 TABLET DAILY ORAL 11/26/19 16 13:05 Prescription Detail TAKE 1 TABLET ORAL DAILY K-DUR 20MEQ ORAL TABLET, EXTENDED R 0 1 TABLET TWICE A DAY ORAL 016 13:04 Prescription Detail TAKE 1 TABLET ORAL TWICE A DAY Mapap 325MG Oral Tablet [id number] 975 MILLIGRAMS PRN Q6H BY MOUTH 11/26/2015 13:04 Prescription Detail TAKE 975 MILLIGRAMS BY MOUTH PRN Q6H metFORMIN HCl 1000MG Oral Tablet, Extended Release [id number] 1 TABLET DAILY ORAL 11/26/2015 13:04 Prescription Detail TAKE 1 TABLET ORAL DAILY ONDANSETRON HCI 8MG ORAL TABLET 0 8 MILLIGRAMS NEEDED ORAL 6 13:04 Prescription Detail TAKE 8 MILLIGRAMS ORAL NEEDED ALPRAZolam 0.5MG Oral Tablet 989497 0.5 MILLIGRAMS NEEDED DAILY ORAL 07/28/2015 15:08 Prescription Detail TAKE 0.5 MILLIGRAMS ORAL NEEDED DAILY Medications Administered During Visit Unknown or Not Available. Encounters Encounter Diagnosis Diagnosis Code Start Date Encounter for other specified aftercare [id number] 11/18/2021 Social History Smoking Status Code Start Date End Date Current every day smoker [id number] Patient Decision Aids Unknown or Not Available. Discharge Instructions You were admitted to [facility] on 11/18/2021 08:42 with a principal diagnosis of Encounter for other specified aftercare You were discharged from [facility] on 11/18/2021 08:42 Should you have any questions prior to [...]
--- OUTSIDE RECORDS SUMMARY | 2023-01-16 17:26 | XMS_ITS | CCD ---
Author Name Unknown Address [address] [place] [address] [phone] Organization Unknown Address [address] [place] [address] [phone] Care Team Providers Care Latex Fashions Designer Name Role Phone WILIAN, MCKADIPIKA Hernandez Attending Physician [phone] Vital Signs Unknown or Not Available. Allergies Allergy Code Allergy Type Reaction Status No Known Allergies 0 No known allergies Active Procedures Unknown or Not Available. History of Immunizations Immunization Code Date pneumococcal polysaccharide PPV23 33 12/02/2013 Problems Problem Code Start Date Resolved Date Status Anemia [id number] Active Results Unknown or Not Available. Active Medications Medication Code Dose Units Frequency Route Modificatio n Start Date/Time MiraLAX 17GM/1Dose Oral Powder for Solution 356667 1 UNIT NEEDED DAILY ORAL 11/26/2015 13:06 Prescription Detail TAKE 1 UNIT ORAL NEEDED DAILY FOR CON STIPATION Colace 100MG Oral Capsule, Liquid Filled 6053255 1 TABLET NEEDED TWICE DAILY ORAL 11/26/2015 13:05 Prescription Detail TAKE 1 TABLET ORAL NEEDED TWICE DAILY FOR CONSTIPATION Torsemide 20MG Oral Tablet 912105 1 TABLET DAILY ORAL 11/26/19 16 13:05 Prescription Detail TAKE 1 TABLET ORAL DAILY K-DUR 20MEQ ORAL TABLET, EXTENDED R 0 1 TABLET TWICE A DAY ORAL 016 13:04 Prescription Detail TAKE 1 TABLET ORAL TWICE A DAY Mapap 325MG Oral Tablet [id number] 975 MILLIGRAMS PRN Q6H BY MOUTH 11/26/2015 13:04 Prescription Detail TAKE 975 MILLIGRAMS BY MOUTH PRN Q6H metFORMIN HCl 1000MG Oral Tablet, Extended Release [id number] 1 TABLET DAILY ORAL 11/26/2015 13:04 Prescription Detail TAKE 1 TABLET ORAL DAILY ONDANSETRON HCI 8MG ORAL TABLET 0 8 MILLIGRAMS NEEDED ORAL 6 13:04 Prescription Detail TAKE 8 MILLIGRAMS ORAL NEEDED ALPRAZolam 0.5MG Oral Tablet 008739 0.5 MILLIGRAMS NEEDED DAILY ORAL 07/28/2015 15:08 Prescription Detail TAKE 0.5 MILLIGRAMS ORAL NEEDED DAILY Medications Administered During Visit Unknown or Not Available. Encounters Encounter Diagnosis Diagnosis Code Start Date Aftercare [id number] 02/10/2022 Social History Smoking Status Code Start Date End Date Current every day smoker [id number] Patient Decision Aids Unknown or Not Available. Discharge Instructions You were admitted to [facility] on 02/10/2022 09:46 with a principal diagnosis of Encounter for other specified aftercare You were discharged from [facility] on 02/10/2022 10:56 Should you have any questions prior to [...]
--- OUTSIDE RECORDS SUMMARY | 2023-01-16 17:27 | XMS_ITS | CCD ---
Author Name Unknown Address [address] [place] [address] [phone] Organization Unknown Address [address] [place] [address] [phone] Care Team Providers Care Machine Maintenance Mechanic Name Role Phone WILIAN, MCKADIPIKA Hernandez Attending Physician [phone] Vital Signs Unknown or Not Available. Allergies Allergy Code Allergy Type Reaction Status No Known Allergies 0 No known allergies Active Procedures Unknown or Not Available. History of Immunizations Immunization Code Date pneumococcal polysaccharide PPV23 33 12/02/2013 Problems Problem Code Start Date Resolved Date Status Anemia [id number] Active Results Unknown or Not Available. Active Medications Medication Code Dose Units Frequency Route Modificatio n Start Date/Time MiraLAX 17GM/1Dose Oral Powder for Solution 787408 1 UNIT NEEDED DAILY ORAL 11/26/2015 13:06 Prescription Detail TAKE 1 UNIT ORAL NEEDED DAILY FOR CON STIPATION Colace 100MG Oral Capsule, Liquid Filled 8473409 1 TABLET NEEDED TWICE DAILY ORAL 11/26/2015 13:05 Prescription Detail TAKE 1 TABLET ORAL NEEDED TWICE DAILY FOR CONSTIPATION Torsemide 20MG Oral Tablet 039975 1 TABLET DAILY ORAL 11/26/19 16 13:05 Prescription Detail TAKE 1 TABLET ORAL DAILY K-DUR 20MEQ ORAL TABLET, EXTENDED R 0 1 TABLET TWICE A DAY ORAL 016 13:04 Prescription Detail TAKE 1 TABLET ORAL TWICE A DAY Mapap 325MG Oral Tablet [id number] 975 MILLIGRAMS PRN Q6H BY MOUTH 11/26/2015 13:04 Prescription Detail TAKE 975 MILLIGRAMS BY MOUTH PRN Q6H metFORMIN HCl 1000MG Oral Tablet, Extended Release [id number] 1 TABLET DAILY ORAL 11/26/2015 13:04 Prescription Detail TAKE 1 TABLET ORAL DAILY ONDANSETRON HCI 8MG ORAL TABLET 0 8 MILLIGRAMS NEEDED ORAL 6 13:04 Prescription Detail TAKE 8 MILLIGRAMS ORAL NEEDED ALPRAZolam 0.5MG Oral Tablet 731881 0.5 MILLIGRAMS NEEDED DAILY ORAL 07/28/2015 15:08 Prescription Detail TAKE 0.5 MILLIGRAMS ORAL NEEDED DAILY Medications Administered During Visit Unknown or Not Available. Encounters Encounter Diagnosis Diagnosis Code Start Date Encounter for other specified aftercare [id number] 06/07/2022 Social History Smoking Status Code Start Date End Date Current every day smoker [id number] Patient Decision Aids Unknown or Not Available. Discharge Instructions You were admitted to [facility] on 06/07/2022 09:03 with a principal diagnosis of Encounter for other specified aftercare You were discharged from [facility] on 06/07/2022 13:52 Should you have any questions prior to [...]
--- OUTSIDE RECORDS SUMMARY | 2023-01-16 17:27 | XMS_ITS | CCD ---
Author Name Unknown Address [address] [place] [address] [phone] Organization Unknown Address [address] [place] [address] [phone] Care Team Providers Care Glass Checker Name Role Phone VINODDAVID CONLEY TERE Attending Physician [phone] Vital Signs Unknown or Not Available. Allergies Allergy Code Allergy Type Reaction Status No Known Allergies 0 No known allergies Active Procedures Unknown or Not Available. History of Immunizations Immunization Code Date pneumococcal polysaccharide PPV23 33 12/02/2013 Problems Problem Code Start Date Resolved Date Status Anemia 035669854 Active Results Unknown or Not Available. Active Medications Medication Code Dose Units Frequency Route Modificatio n Start Date/Time MiraLAX 17GM/1Dose Oral Powder for Solution 625314 1 UNIT NEEDED DAILY ORAL 11/26/2015 13:06 Prescription Detail TAKE 1 UNIT ORAL NEEDED DAILY FOR CON STIPATION Colace 100MG Oral Capsule, Liquid Filled 8071780 1 TABLET NEEDED TWICE DAILY ORAL 11/26/2015 13:05 Prescription Detail TAKE 1 TABLET ORAL NEEDED TWICE DAILY FOR CONSTIPATION Torsemide 20MG Oral Tablet [id number] 1 TABLET DAILY ORAL 11/26/19 16 13:05 Prescription Detail TAKE 1 TABLET ORAL DAILY K-DUR 20MEQ ORAL TABLET, EXTENDED R 0 1 TABLET TWICE A DAY ORAL 016 13:04 Prescription Detail TAKE 1 TABLET ORAL TWICE A DAY Mapap 325MG Oral Tablet 604906 975 MILLIGRAMS PRN Q6H BY MOUTH 11/26/2015 13:04 Prescription Detail TAKE 975 MILLIGRAMS BY MOUTH PRN Q6H metFORMIN HCl 1000MG Oral Tablet, Extended Release [id number] 1 TABLET DAILY ORAL 11/26/2015 13:04 Prescription Detail TAKE 1 TABLET ORAL DAILY ONDANSETRON HCI 8MG ORAL TABLET 0 8 MILLIGRAMS NEEDED ORAL 6 13:04 Prescription Detail TAKE 8 MILLIGRAMS ORAL NEEDED ALPRAZolam 0.5MG Oral Tablet [id number] 0.5 MILLIGRAMS NEEDED DAILY ORAL 07/28/2015 15:08 Prescription Detail TAKE 0.5 MILLIGRAMS ORAL NEEDED DAILY Medications Administered During Visit Unknown or Not Available. 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 Discharge Instructions You were admitted to [facility] 01 on 01/31/2021 09:20 with a principal diagnosis of Non-pressure chronic ulcer of other part of right foot with necrosis of bone You were discharged from [facility] 01 on 01/31/2021 09:20 Should you have any questions prior to [...]
--- OUTSIDE RECORDS SUMMARY | 2023-01-16 17:27 | XMS_ITS | CCD ---
Author Name Unknown Address [address] [place] [address] [phone] Organization Unknown Address [address] [place] [address] [phone] Care Team Providers Care Membership Sales Representative Name Role Phone VINODDAVID CONLEY TERE Attending Physician [phone] Vital Signs Unknown or Not Available. Allergies Allergy Code Allergy Type Reaction Status No Known Allergies 0 No known allergies Active Procedures Procedure Code Procedure Type Date Debridement, Subcutaneous Ti ssue; First 20 sq cm Or Less 36143 CPT 11/19/2020 History of Immunizations Immunization Code Date pneumococcal polysaccharide PPV23 33 12/02/2013 Problems Problem Code Start Date Resolved Date Status Anemia 339701643 Active Results Unknown or Not Available. Active Medications Medication Code Dose Units Frequency Route Modificatio n Start Date/Time MiraLAX 17GM/1Dose Oral Powder for Solution 284881 1 UNIT NEEDED DAILY ORAL 11/26/2015 13:06 Prescription Detail TAKE 1 UNIT ORAL NEEDED DAILY FOR CON STIPATION Colace 100MG Oral Capsule, Liquid Filled 6703154 1 TABLET NEEDED TWICE DAILY ORAL 11/26/2015 13:05 Prescription Detail TAKE 1 TABLET ORAL NEEDED TWICE DAILY FOR CONSTIPATION Torsemide 20MG Oral Tablet 420164 1 TABLET DAILY ORAL 11/26/19 16 13:05 Prescription Detail TAKE 1 TABLET ORAL DAILY K-DUR 20MEQ ORAL TABLET, EXTENDED R 0 1 TABLET TWICE A DAY ORAL 016 13:04 Prescription Detail TAKE 1 TABLET ORAL TWICE A DAY Mapap 325MG Oral Tablet 113061 975 MILLIGRAMS PRN Q6H BY MOUTH 11/26/2015 13:04 Prescription Detail TAKE 975 MILLIGRAMS BY MOUTH PRN Q6H metFORMIN HCl 1000MG Oral Tablet, Extended Release [id number] 1 TABLET DAILY ORAL 11/26/2015 13:04 Prescription Detail TAKE 1 TABLET ORAL DAILY ONDANSETRON HCI 8MG ORAL TABLET 0 8 MILLIGRAMS NEEDED ORAL 6 13:04 Prescription Detail TAKE 8 MILLIGRAMS ORAL NEEDED ALPRAZolam 0.5MG Oral Tablet 046200 0.5 MILLIGRAMS NEEDED DAILY ORAL 07/28/2015 15:08 Prescription Detail TAKE 0.5 MILLIGRAMS ORAL NEEDED DAILY Medications Administered During Visit Unknown or Not Available. 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 Discharge Instructions You were admitted to [facility] 01 on 11/19/2020 10:57 with a principal diagnosis of Non-pressure chronic ulcer of other part of right foot with necrosis of bone You had the following procedures done:Debridement, Subcutaneous Tissue; First 20 sq cm Or Less You were discharged from [facility] 01 on 11/19/2020 10:57 Should you have any questions prior to [...]
--- OUTSIDE RECORDS SUMMARY | 2023-01-16 17:27 | XMS_ITS | CCD ---
Author Name Unknown Address [address] [place] [address] [phone] Organization Unknown Address [address] [place] [address] [phone] Care Team Providers Care Remedial Reading Teacher Name Role Phone VINODDAVID CONLEY TERE Attending Physician [phone] Vital Signs Unknown or Not Available. Allergies Allergy Code Allergy Type Reaction Status No Known Allergies 0 No known allergies Active Procedures Procedure Code Procedure Type Date Debridement, Subcutaneous Ti ssue; First 20 sq cm Or Less 01976 CPT 12/24/2020 History of Immunizations Immunization Code Date pneumococcal polysaccharide PPV23 33 12/02/2013 Problems Problem Code Start Date Resolved Date Status Anemia 214823171 Active Results Unknown or Not Available. Active Medications Medication Code Dose Units Frequency Route Modificatio n Start Date/Time MiraLAX 17GM/1Dose Oral Powder for Solution 892148 1 UNIT NEEDED DAILY ORAL 11/26/2015 13:06 Prescription Detail TAKE 1 UNIT ORAL NEEDED DAILY FOR CON STIPATION Colace 100MG Oral Capsule, Liquid Filled 3461193 1 TABLET NEEDED TWICE DAILY ORAL 11/26/2015 13:05 Prescription Detail TAKE 1 TABLET ORAL NEEDED TWICE DAILY FOR CONSTIPATION Torsemide 20MG Oral Tablet 702327 1 TABLET DAILY ORAL 11/26/19 16 13:05 Prescription Detail TAKE 1 TABLET ORAL DAILY K-DUR 20MEQ ORAL TABLET, EXTENDED R 0 1 TABLET TWICE A DAY ORAL 016 13:04 Prescription Detail TAKE 1 TABLET ORAL TWICE A DAY Mapap 325MG Oral Tablet 112712 975 MILLIGRAMS PRN Q6H BY MOUTH 11/26/2015 13:04 Prescription Detail TAKE 975 MILLIGRAMS BY MOUTH PRN Q6H metFORMIN HCl 1000MG Oral Tablet, Extended Release [id number] 1 TABLET DAILY ORAL 11/26/2015 13:04 Prescription Detail TAKE 1 TABLET ORAL DAILY ONDANSETRON HCI 8MG ORAL TABLET 0 8 MILLIGRAMS NEEDED ORAL 6 13:04 Prescription Detail TAKE 8 MILLIGRAMS ORAL NEEDED ALPRAZolam 0.5MG Oral Tablet 381331 0.5 MILLIGRAMS NEEDED DAILY ORAL 07/28/2015 15:08 Prescription Detail TAKE 0.5 MILLIGRAMS ORAL NEEDED DAILY Medications Administered During Visit Unknown or Not Available. 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 Discharge Instructions You were admitted to [facility] 01 on 12/24/2020 10:54 with a principal diagnosis of Non-pressure chronic ulcer of other part of right foot with necrosis of bone You had the following procedures done:Debridement, Subcutaneous Tissue; First 20 sq cm Or Less You were discharged from [facility] 01 on 12/24/2020 10:54 Should you have any questions prior to [...]
--- OUTSIDE RECORDS SUMMARY | 2023-01-16 17:27 | XMS_ITS | CCD ---
Author Name Unknown Address [address] [place] [address] [phone] Organization Unknown Address [address] [place] [address] [phone] Care Team Providers Care Head Waitress Name Role Phone WILIAN, MCKADIPIKA Hernandez Attending Physician [phone] Vital Signs Unknown or Not Available. Allergies Allergy Code Allergy Type Reaction Status No Known Allergies 0 No known allergies Active Procedures Unknown or Not Available. History of Immunizations Immunization Code Date pneumococcal polysaccharide PPV23 33 12/02/2013 Problems Problem Code Start Date Resolved Date Status Anemia [id number] Active Results Unknown or Not Available. Active Medications Medication Code Dose Units Frequency Route Modificatio n Start Date/Time MiraLAX 17GM/1Dose Oral Powder for Solution 285426 1 UNIT NEEDED DAILY ORAL 11/26/2015 13:06 Prescription Detail TAKE 1 UNIT ORAL NEEDED DAILY FOR CON STIPATION Colace 100MG Oral Capsule, Liquid Filled 0669561 1 TABLET NEEDED TWICE DAILY ORAL 11/26/2015 13:05 Prescription Detail TAKE 1 TABLET ORAL NEEDED TWICE DAILY FOR CONSTIPATION Torsemide 20MG Oral Tablet 355611 1 TABLET DAILY ORAL 11/26/19 16 13:05 Prescription Detail TAKE 1 TABLET ORAL DAILY K-DUR 20MEQ ORAL TABLET, EXTENDED R 0 1 TABLET TWICE A DAY ORAL 016 13:04 Prescription Detail TAKE 1 TABLET ORAL TWICE A DAY Mapap 325MG Oral Tablet [id number] 975 MILLIGRAMS PRN Q6H BY MOUTH 11/26/2015 13:04 Prescription Detail TAKE 975 MILLIGRAMS BY MOUTH PRN Q6H metFORMIN HCl 1000MG Oral Tablet, Extended Release [id number] 1 TABLET DAILY ORAL 11/26/2015 13:04 Prescription Detail TAKE 1 TABLET ORAL DAILY ONDANSETRON HCI 8MG ORAL TABLET 0 8 MILLIGRAMS NEEDED ORAL 6 13:04 Prescription Detail TAKE 8 MILLIGRAMS ORAL NEEDED ALPRAZolam 0.5MG Oral Tablet 017287 0.5 MILLIGRAMS NEEDED DAILY ORAL 07/28/2015 15:08 Prescription Detail TAKE 0.5 MILLIGRAMS ORAL NEEDED DAILY Medications Administered During Visit Unknown or Not Available. Encounters Encounter Diagnosis Diagnosis Code Start Date Aftercare [id number] 09/28/2022 Social History Smoking Status Code Start Date End Date Current every day smoker [id number] Patient Decision Aids Unknown or Not Available. Discharge Instructions You were admitted to [facility] on 09/28/2022 08:55 with a principal diagnosis of Encounter for other specified aftercare You were discharged from [facility] on 09/28/2022 12:09 Should you have any questions prior to [...]
[2023-01-16 17:51] LABS: HGB 11.2 g/dL (11.2-15.7); MCH 30.1 pg (27.0-33.0); MCV 94 fL (80-95); MPV 11.1 fL (8.0-11.0); Platelet Count 188 10^3/uL (130-400); RBC 3.72 10^6/uL (3.93-5.22); RDW 14.6 % (11.7-14.6); RDW-SD 50.4 fL; WBC 8.04 10^3/uL (4.4-10.8)
[2023-01-16 18:15] LABS: Iron 144 ug/dL (50-170); Total Iron Binding Capacity 357 ug/dL (250-450); Transferrin Sat 40 % (15-50)
[2023-01-16 18:28] LABS: Anion Gap 8.5 mmol/L (3-11); BUN 68 mg/dL (7-18); CO2 32.5 mmol/L (21.0-32.0); CREATININE 2.6 mg/dL (0.55-1.02); Calcium 9.2 mg/dL (8.5-10.1); Chloride 91 mmol/L (98-107); Estimated GFR 19.02 (mL/min/1.73m2); Ferritin 37 ng/mL (8-252); Glucose 267 mg/dL (74-106); Potassium 3.4 mmol/L (3.5-5.1); Sodium 132 mmol/L (136-145)
== END 2023-01-16 17:23 | disposition home or self-care (01) ==
LOC: NCHCN 17:22
PROVIDERS: PCP Family Medicine; Visit Provider Family Medicine
DX: D50.9 Iron deficiency anemia, unspecified (principal); E11.9 Type 2 diabetes mellitus without complications; N18.4 Chronic kidney disease, stage 4 (severe)
CPT/HCPCS: 80048; 85027; 82728; 83540; 83550

== ENCOUNTER 2023-01-25 16:44 | Outpatient (REF) | payer OTHER, MEDICAID, SELFPAY ==
[2023-01-25 15:54] LABS: BUN 63 mg/dL (7-18); CREATININE 2.3 mg/dL (0.55-1.02); Chloride 94 mmol/L (98-107); Estimated GFR 22.03 (mL/min/1.73m2); Glucose 193 mg/dL (74-106); Sodium 132 mmol/L (136-145)
== END 2023-01-25 16:45 | disposition home or self-care (01) ==
LOC: NCHCN 16:44
PROVIDERS: PCP Family Medicine; Visit Provider Family Medicine
DX: N18.4 Chronic kidney disease, stage 4 (severe) (principal); E11.9 Type 2 diabetes mellitus without complications; I10 Essential (primary) hypertension
CPT/HCPCS: 80048

== ENCOUNTER 2023-02-07 15:30 | Outpatient (REF) | payer OTHER, MEDICAID, SELFPAY ==
[2023-02-07 17:57] LABS: Anion Gap 8.3 mmol/L (3-11); BUN 58 mg/dL (7-18); CO2 29.7 mmol/L (21.0-32.0); Calcium 9.5 mg/dL (8.5-10.1); Chloride 93 mmol/L (98-107); Estimated GFR 26.05 (mL/min/1.73m2); Glucose 168 mg/dL (74-106); Potassium 3.9 mmol/L (3.5-5.1); Sodium 131 mmol/L (136-145)
== END 2023-02-07 15:31 | disposition home or self-care (01) ==
LOC: NCHCN 15:30
PROVIDERS: PCP Family Medicine; Visit Provider Family Medicine
DX: N18.4 Chronic kidney disease, stage 4 (severe) (principal); I10 Essential (primary) hypertension; E11.9 Type 2 diabetes mellitus without complications
CPT/HCPCS: 80048

== ENCOUNTER 2023-03-21 15:44 | Outpatient (REF) | payer OTHER, MEDICAID, SELFPAY ==
[2023-03-21 16:34] LABS: BUN 61 mg/dL (7-18); CREATININE 2.1 mg/dL (0.55-1.02); Calcium 10.2 mg/dL (8.5-10.1); Chloride 99 mmol/L (98-107); Estimated GFR 24.57 (mL/min/1.73m2); Glucose 118 mg/dL (74-106); Potassium 3.9 mmol/L (3.5-5.1); Sodium 137 mmol/L (136-145)
== END 2023-03-21 15:45 | disposition home or self-care (01) ==
LOC: NCHCN 15:44
PROVIDERS: PCP Family Medicine; Visit Provider Family Medicine
DX: E11.65 Type 2 diabetes mellitus with hyperglycemia (principal); N18.4 Chronic kidney disease, stage 4 (severe)
CPT/HCPCS: 80048; 83036

== ENCOUNTER 2023-06-26 12:10 | Outpatient (REF) | payer OTHER, MEDICAID, SELFPAY ==
[2023-06-26 14:23] LABS: HCT 29.8 % (36.0-46.0); HGB 9.5 g/dL (11.2-15.7); MCH 29.1 pg (27.0-33.0); MCHC 31.9 % (32.0-36.0); MCV 91 fL (80-95); Platelet Count 220 10^3/uL (130-400); RBC 3.26 10^6/uL (3.93-5.22); RDW 13.3 % (11.7-14.6); RDW-SD 45.1 fL; WBC 8.18 10^3/uL (4.4-10.8)
[2023-06-26 14:52] LABS: Hemoglobin A1C 5.7 % (<5.7)
[2023-06-26 16:35] LABS: ALT 11 U/L (14-59); AST 18 U/L (15-37); Albumin 2.9 g/dL (3.4-5.0); Alkaline Phosphatase 61 U/L (46-116); BUN 67 mg/dL (7-18); Bilirubin, Total 0.5 mg/dL (0.2-1.0); Calcium 8.9 mg/dL (8.5-10.1); Calculated LDL 42 mg/dL (<100); Chloride 97 mmol/L (98-107); Cholesterol 94 mg/dL (<200); Estimated GFR 25.89 (mL/min/1.73m2); Glucose 120 mg/dL (74-106); HDL Cholesterol 35 mg/dL (40-60); Potassium 3.4 mmol/L (3.5-5.1); Sodium 135 mmol/L (136-145); Triglyceride 87 mg/dL (<150)
== END 2023-06-26 12:11 | disposition home or self-care (01) ==
LOC: NCHCN 12:10
PROVIDERS: PCP Family Medicine; Visit Provider Family Medicine
DX: E11.9 Type 2 diabetes mellitus without complications (principal); E78.5 Hyperlipidemia, unspecified; D50.9 Iron deficiency anemia, unspecified
CPT/HCPCS: 80053; 80061; 85027; 83036

== ENCOUNTER 2023-10-26 11:01 | Outpatient (REF) | payer OTHER, MEDICAID, SELFPAY ==
[2023-10-26 14:23] LABS: HCT 30.3 % (36.0-46.0); HGB 9.9 g/dL (11.2-15.7); MCH 30.7 pg (27.0-33.0); MCHC 32.7 % (32.0-36.0); MCV 94 fL (80-95); MPV 11.6 fL (8.0-11.0); Platelet Count 190 10^3/uL (130-400); RBC 3.23 10^6/uL (3.93-5.22); RDW 13.6 % (11.7-14.6); RDW-SD 46.4 fL; WBC 7.93 10^3/uL (4.4-10.8)
[2023-10-26 14:32] LABS: Anion Gap 7.8 mmol/L (3-11); BUN 58 mg/dL (7-18); CO2 31.2 mmol/L (21.0-32.0); CREATININE 1.7 mg/dL (0.55-1.02); Chloride 99 mmol/L (98-107); Estimated GFR 31.47 (mL/min/1.73m2); Glucose 102 mg/dL (74-106); Potassium 3.6 mmol/L (3.5-5.1); Sodium 138 mmol/L (136-145)
== END 2023-10-26 11:02 | disposition home or self-care (01) ==
LOC: NCHCN 11:01
PROVIDERS: PCP Family Medicine; Visit Provider Family Medicine
DX: N18.4 Chronic kidney disease, stage 4 (severe) (principal); D50.9 Iron deficiency anemia, unspecified
CPT/HCPCS: 80048; 85027

== ENCOUNTER 2024-06-04 13:50 | Outpatient (REF) | payer MEDICARE, MEDICAID, SELFPAY ==
[2024-06-04 15:44] LABS: HCT 33.2 % (36.0-46.0); HGB 10.5 g/dL (11.2-15.7); MCH 30.7 pg (27.0-33.0); MCHC 31.6 % (32.0-36.0); MCV 97 fL (80-95); Platelet Count 191 10^3/uL (130-400); RBC 3.42 10^6/uL (3.93-5.22); RDW-SD 49.3 fL; WBC 6.47 10^3/uL (4.4-10.8)
[2024-06-04 15:59] LABS: Iron 87 ug/dL (50-170); Total Iron Binding Capacity 382 ug/dL (250-450); Transferrin Sat 23 % (15-50)
[2024-06-04 16:08] LABS: ALT 16 U/L (14-59); AST 14 U/L (15-37); Albumin 3.5 g/dL (3.4-5.0); Alkaline Phosphatase 73 U/L (46-116); Anion Gap 4.6 mmol/L (3-11); BUN 51 mg/dL (7-18); Bilirubin, Total 0.42 mg/dL (0.2-1.0); CO2 34.4 mmol/L (21.0-32.0); CREATININE 1.9 mg/dL (0.55-1.02); Calcium 9.6 mg/dL (8.5-10.1); Chloride 104 mmol/L (98-107); Estimated GFR 27.37 (mL/min/1.73m2); Ferritin 26 ng/mL (8-252); Glucose 99 mg/dL (74-106); PHOSPHORUS 3.5 mg/dL (2.6-4.7); Potassium 4.4 mmol/L (3.5-5.1); Sodium 143 mmol/L (136-145); Total Protein 6.9 g/dL (6.4-8.2)
[2024-06-04 16:42] LABS: Hemoglobin A1C 5.1 % (<5.7)
[2024-06-04 16:49] LABS: Calculated LDL 48 mg/dL (<100); Cholesterol 125 mg/dL (<200); HDL Cholesterol 45 mg/dL (40-60); Triglyceride 162 mg/dL (<150); Vitamin B12 > 2000 pg/mL (193-986); Vitamin D 25 Total 49.9 ng/mL (30-100)
[2024-06-04 23:04] LABS: Parathyroid Hormone,Intact 107.9 pg/mL (19.0-88.0)
== END 2024-06-04 13:51 | disposition home or self-care (01) ==
LOC: NCHCN 13:50
PROVIDERS: PCP Family Medicine; Visit Provider Family Medicine
DX: N18.4 Chronic kidney disease, stage 4 (severe)
CPT/HCPCS: 80053; 80061; 82306; 85027; 82607; 82728; 83036; 83540; 83550; 83970; 84100

== ENCOUNTER 2024-07-28 13:19 | Outpatient (REF) | payer MEDICARE, MEDICAID, SELFPAY ==
[2024-07-28 15:09] LABS: Anion Gap 5.2 mmol/L (3-11); CO2 33.8 mmol/L (21.0-32.0); CREATININE 2.2 mg/dL (0.55-1.02); Calcium 9.7 mg/dL (8.5-10.1); Chloride 99 mmol/L (98-107); Estimated GFR 22.95 (mL/min/1.73m2); Glucose 143 mg/dL (74-106); NT-proBNP 646 pg/mL (<300); Potassium 3.6 mmol/L (3.5-5.1); Sodium 138 mmol/L (136-145)
[2024-07-28 15:16] LABS: BUN 85 mg/dL (7-18)
== END 2024-07-28 13:20 | disposition home or self-care (01) ==
LOC: NCHCN 13:19
PROVIDERS: PCP Family Medicine; Visit Provider Nurse Practitioner Family
DX: R60.9 Edema, unspecified (principal)
CPT/HCPCS: 80048; 83880

== ENCOUNTER 2024-08-01 11:21 | Outpatient (REF) | payer MEDICARE, MEDICAID, SELFPAY ==
[2024-08-01 14:50] LABS: ALT 11 U/L (14-59); AST 18 U/L (15-37); Albumin 2.7 g/dL (3.4-5.0); Alkaline Phosphatase 64 U/L (46-116); Bilirubin, Total 0.3 mg/dL (0.2-1.0); CREATININE 2.2 mg/dL (0.55-1.02); Calcium 9.3 mg/dL (8.5-10.1); Chloride 97 mmol/L (98-107); Estimated GFR 22.95 (mL/min/1.73m2); Glucose 143 mg/dL (74-106); Potassium 3.1 mmol/L (3.5-5.1); Sodium 136 mmol/L (136-145); Total Protein 6.4 g/dL (6.4-8.2)
[2024-08-01 15:05] LABS: BUN 83 mg/dL (7-18)
== END 2024-08-01 11:22 | disposition home or self-care (01) ==
LOC: NCHCN 11:21
PROVIDERS: PCP Family Medicine; Visit Provider Family Medicine
DX: N18.4 Chronic kidney disease, stage 4 (severe) (principal)
CPT/HCPCS: 80053

== ENCOUNTER 2024-08-06 16:20 | Outpatient (REF) | payer MEDICARE, MEDICAID, SELFPAY ==
[2024-08-06 21:26] LABS: Anion Gap 9.2 mmol/L (3-11); CO2 27.8 mmol/L (21.0-32.0); CREATININE 3.5 mg/dL (0.55-1.02); Calcium 8.8 mg/dL (8.5-10.1); Chloride 92 mmol/L (98-107); Estimated GFR 13.15 (mL/min/1.73m2); Glucose 138 mg/dL (74-106); Potassium 3.6 mmol/L (3.5-5.1); Sodium 129 mmol/L (136-145)
[2024-08-06 21:41] LABS: BUN 111 mg/dL (7-18)
== END 2024-08-06 16:21 | disposition home or self-care (01) ==
LOC: NCHCN 16:20
PROVIDERS: PCP Family Medicine; Visit Provider Family Medicine
DX: R60.9 Edema, unspecified (principal)
CPT/HCPCS: 80048